=== PATIENT | male | born 1945 | race Caucasian/White ===

== ENCOUNTER 2023-11-28 11:56 | Outpatient (CLI) | payer OTHER | END 2023-11-28 11:57 | disposition home or self-care (01) | LOC: BICRAD 11:56 | PROVIDERS: ATTEND Chiropractor | DX: J43.9 Emphysema, unspecified (principal); J18.9 Pneumonia, unspecified organism; J98.4 Other disorders of lung; J90 Pleural effusion, not elsewhere classified; J92.9 Pleural plaque without asbestos; I51.7 Cardiomegaly | CPT/HCPCS: 71046 ==